=== PATIENT | male | born 1970 | race Caucasian/White ===

== ENCOUNTER 2018-01-10 11:01 | Emergency (ER) | payer OTHER ==
[~2018-01-10] VITALS: Ht 190.5 cm; Wt 108.9 kg
== END 2018-01-10 16:27 | disposition home or self-care (01) ==
LOC: ER 11:01
DX: B34.9 Viral infection, unspecified (principal); N39.0 Urinary tract infection, site not specified; N28.1 Cyst of kidney, acquired; R79.89 Other specified abnormal findings of blood chemistry